=== PATIENT | female | born 1970 | race Caucasian/White ===

== ENCOUNTER 2020-08-23 11:38 | Emergency (ER) | payer OTHER ==
[~2020-08-23 11:38] MED LIST: BACTRIM DS TAB1 EACH PO; BENTYL 20MG TAB20 MG PO; KEFLEX500 MG PO; ZOFRAN ODT 4 MG4 MG SL
[2020-08-23] MEDS ORDERED: ENDOCET 5-3251 EACH PO (12:42)
== END 2020-08-23 13:05 | disposition home or self-care (01) ==
LOC: ER1 11:38
DX: M19.012 Primary osteoarthritis, left shoulder (principal)
CPT/HCPCS: 73030; 99283